=== PATIENT | female | born 2000 | race Caucasian/White ===

== ENCOUNTER 2021-03-14 19:12 | Inpatient (IN) | payer MEDICAID ==
--- NOTE | 2021-03-14 21:28 | PCM.LDHP ---
L&D History of Present Illness - General Date of Service: 03/14/21 Admit Problem/Dx: Patient Status Order with Admit Dx/Problem 03/14/21 19:20 Patient Status [ADT] Routine Admission Diagnosis/Problem Admission Diagnosis/Problem 39 weeks gestation of Source of Information: Patient History Limitations: Reports: No Limitations - History of Present Illness Introduction:: Mitzy Hernandez is a 20-year-old at 39 weeks 6 days (STEFANIE 03/15/2021) by an early ultrasound who presents with active contractions. She reports that she first started having contractions and pain at around 2:30 AM. This lasted for several hours where it was a constant pain and did not seem to let up from this pain. At around 11:30 AM she started to have regular contractions every 2 to 3 minutes and this lasted for several hours. The contractions started to get stronger and more painful. She reports that she has been having mucus vaginal discharge mixed with vaginal blood. Denies active bleeding but has been having consistent blood mixed with the mucus. Denies any leaking of any watery discharge. Reports good movement. Timing/Duration: Reports: constant/continuous (contractions every 2-3 minutes for the last 10 hours or so) Location, : Reports: Lower back, Pelvic, Vagina Quality: Reports: Pressure, Sharp, Throbbing Severity: Severe Improves with: Reports: None Worsens with: Reports: None Associated Symptoms: Reports: vaginal bleeding (minimal amount with mucus discharge), vaginal discharge (small amount of vaginal mucus discharge). Denies: vaginal clots, vaginal fluid Present Illness Comments:: Mitzy Hernandez is a 20-year-old at 39 weeks 6 days (STEFANIE 03/15/2021) by a 12- week ultrasound who presents with active contractions. She has had intermittent care with a provider in [place], [place]. Patient initially seen at around 12 weeks gestational age. Patient not seen since 30 weeks gestational age. She recently moved to [place] and was planning to establish care with a provider at [facility] on 03/18/2021. She states that she has had routine care and has not had any complications. She reports that she is GBS negative. Her care is complicated by: * Social history concerns with statement at appointment on 32 weeks that couples stated they have a backup plan that if they cannot handle the baby they will give it to a friend. * History of depression and is not on any medication at this time * History of bipolar disorder * History of hypertension and has not taken any medication for high blood pressure in approximately 2 years. She does not remember what medication she was on. CHECKOUT OPERATOR history G1: Current labs Blood type: O+ Antibody screen: Negative Urine culture: Mixed lisandra suggestive of contamination Rubella status: Immune Hepatitis B surface antigen: Negative RPR: Negative Hepatitis C: Negative HIV: Negative Pap smear: NILM on 12/16/2020 Gonorrhea: Negative Chlamydia: Negative Genetic testing: Quad screen showed increased risk for Down syndrome with 1 in 17 risk for Down syndrome Cell free DNA genetic screening: Negative for trisomy 13, 18 and 21, normal sex chromosomes, male on testing Anatomy ultrasound: Normal anatomy, right lateral placenta without placenta previa, 46 percentile on 10/28/2020 One hour glucose tolerance test: 138 Second trimester hematocrit/hemoglobin: 31.9%/11.2 on 12/16/2020 Platelets: 194 on 12/16/2020 GBS status: Unknown with no record of GBS collected in this on outside records - Related Data Allergies/Adverse Reactions: Allergies Allergy/AdvReac Type Severity Reaction Status Date / Time No Known Allergies Allergy Verified 03/14/21 20:17 Home Medications: Home Meds Famotidine 1 tab PO DAILY 03/14/21 [History] Pnv No.95/Ferrous Fum/Folic AC [ Vitamin Tablet] 1 tab PO DAILY 03/14/21 [History] Past Medical History Cardiovascular History: Reports: Hypertension (History of, has not taken medications since 2019) Psychiatric History: Reports: Depression - Past Surgical History HEENT Surgical History: Reports: None GI Surgical History: Reports: Hernia Repair/Other (Umbilical hernia with mesh repair at 1 years old) Female Surgical History: Reports: None Social & Family History - Tobacco Use Tobacco Use Status *Q: Never Tobacco User Tobacco Use Within Last Twelve Months: No - Tobacco Core Measures Tobacco Use/Smoking Within Last 30 Days: No Smokeless Tobacco Use in Last 30 Days: No - Alcohol Use Alcohol Use History: No - Recreational Drug Use Recreational Drug Use: No Drug Use in Last 12 Months: No - Living Situation & Occupation Living situation: Reports: Single, with Significant Other H&P Review of Systems - Review of Systems: Review Of Systems: See Below General: Denies: Fever, Chills, Malaise, Weakness, Fatigue HEENT: Reports: Glasses, Headaches (Irregular occasional headaches). Denies: Rh initis, Post Nasal Drip, Sinus Congestion, Sore Throat, Visual Changes Pulmonary: Denies: Shortness of Breath, Wheezing, Pleuritic Chest Pain, Cough Cardiovascular: Denies: Chest Pain, Palpitations, Dyspnea on Exertion, Orthopnea Gastrointestinal: Reports: Constipation. Denies: Abdominal Pain, Diarrhea, Nausea, Vomiting Genitourinary: Denies: Dysuria, Frequency, Burning, Pain, Urgency Musculoskeletal: Reports: Back Pain (And hip pain of ) Skin: Denies: Rash, Lesions Psychiatric: Denies: Depression, Anxiety Neurological: Denies: Headache L&D Exam - Exam Exam: See Below - Vital Signs Weight: 73.936 kg - OB Specific Contraction Duration (sec): 45-60 Contraction Frequency (min): 2-4 Contraction Intensity: Strong Movement: Active Heart Tones: Present Heart Tones per Min: 130 (+15 x 15 accelerations, no decelerations) Heart Rate (FHR) Variability: Moderate (6-25 bmp) Presentation: Vertex Estimated Weight: 7-7.5 pounds by Devante - Wild Score Wild Score Cervix Position: Anterior Wild Score Consistency: Soft Wild Score Effacement: >80% (80%) Wild Score Dilation: 3-4 cm (4 cm) Wild Score 's Station: -2 Wild Score Total: 10 - Exam General: Alert, Oriented HEENT: Conjunctiva Clear, EOMI, Glasses Neck: Supple, Trachea Midline Lungs: Clear to Auscultation, Normal Respiratory Effort Cardiovascular: Regular Rate, Regular Rhythm GI/Abdominal Exam: Soft, Non-Tender, No Distention, Other (Gravid). No: Guarding, Rigid, Rebound Genitourinary: Normal external exam, Vaginal discharge (Mixed with dark red blood) Extremities: Normal Inspection, Non-Tender, No Pedal Edema Skin: Warm, Dry, Intact Psychiatric: Alert, Normal Affect, Normal Mood - Problem List (1) 39 weeks gestation of SNOMED Code(s): 43406994 ICD Code: Z3A.39 - 39 WEEKS GESTATION OF Status: Acute Current Visit: Yes (2) History of depression SNOMED Code(s): 041071891 ICD Code: Z86.59 - PERSONAL HISTORY OF OTHER MENTAL AND BEHAVIORAL DISORDERS Status: Acute Current Visit: Yes (3) History of chronic hypertension SNOMED Code(s): 344813280 ICD Code: Z86.79 - PERSONAL HISTORY OF OTHER DISEASES OF THE CIRCULATORY SYSTEM Status: Acute Current Visit: Yes Problem List Initiated/Reviewed/Updated: Yes Orders Last 24hrs: Active Orders 24 hr Category Date Time Status Patient Status Manage Transfer [TRANSFER] Routine ADT 03/14/21 21:13 Ordered Patient Status [ADT] Routine ADT 03/14/21 19:20 Active Non Stress Test [RC] PER UNIT ROUTINE Care 03/14/21 19:20 Active Vital Signs [RC] PER UNIT ROUTINE Care 03/14/21 19:45 Active Resuscitation Status Routine Resus Stat 03/14/21 19:45 Ordered Assessment/Plan Comment:: Prince Frorester is a 20-year-old G1, P0 at 39 weeks 6 days (STEFANIE 03/15/2021) and active labor complicated by history of depression and history of chronic hypertension * Refer to observation for spontaneous labor with cervical change * Records reviewed from outside facility and overall normal. Patient has not been seen since 32 weeks gestational age. * Continuous monitoring * Place IV and have Lactated Ringer's at 125 ml/hr * May have small amounts of regular diet * Activity as tolerated * May have epidural as desired * Plans to bottlefeed after delivery * Plan for artificial rupture of membranes after patient has had epidural and with additional cervical change * Patient with mild range blood pressure on initial evaluation with a value of 141/94. No symptoms of severe features of preeclampsia. We will obtain labs including CBC, CMP, LDH and urine protein/creatinine ratio to evaluate for possible preeclampsia. * GBS status unknown and has not been seen since 32 weeks gestational age. Will collect a GBS swab at this time. Due to intermittent care we will start her on ampicillin 2 g IV then ampicillin 1 g IV every 4 hours for GBS prophylaxis unless results show no evidence of group B strep bacterial infection. * Patient with some social history concerns and would recommend for social service agency director consult given history of bipolar depression and statement at a visit of concerns about not being able to care for the infant with planning to give the infant to a friend if they are unable to care for the infant. * Anticipate vaginal delivery unless otherwise indicated Guillermo Mathis MD 9:53 PM 03/14/2021
[2021-03-14] MEDS ORDERED: Nalbuphine 10 MG/1 ML Vial IVPUSH PRN (22:12)
[2021-03-14] MEDS ORDERED: Acetaminophen 325 MG Tab PO PRN (22:12)
[2021-03-14] MEDS ORDERED: Oxytocin/Lactated Ringers 10 UNIT/1,000 ML BAG IV SCH (22:12)
[2021-03-14] MEDS ORDERED: Ampicillin 2 GM in Sodium Chloride 0.9% 100 ML IV ONE (22:12)
[2021-03-14] MEDS ORDERED: Sodium Chloride 0.9% 10 ML Syringe FLUSH PRN (22:12)
[2021-03-14] MEDS: Lactated Ringers 1,000 ML ONE (22:32)
[2021-03-14] MEDS ORDERED: diphenhydrAMINE 50 MG/ML SDV IVPUSH PRN (23:15)
[2021-03-14] MEDS ORDERED: fentaNYL 100 MCG/2 ML SDV EPIDUR PRN (23:15)
[2021-03-14] MEDS ORDERED: ePHEDrine 50 MG/ML SDV IVPUSH PRN (23:15)
[2021-03-14] MEDS: Bupivacaine/fentaNYL/NS 100 ML Bag EPIDUR PRN (23:31)
--- NOTE | 2021-03-14 23:45 | PCM.PREANE ---
Preanesthetic Assessment - Procedure Proposed Procedure: juliana - Anesthesia/Transfusion/Family Hx Anesthesia History: Prior Anesthesia Without Reaction Family History of Anesthesia Reaction: No Transfusion History: No Prior Transfusion(s) - Review of Systems General: No Symptoms Pulmonary: No Symptoms Cardiovascular: No Symptoms Gastrointestinal: Abdominal Pain (contractions) Neurological: Seizure (age 8 - no meds) Other: Reports: Depression, Anxiety (history) - Physical Assessment Vital Signs: Last Vital Signs Temp 98.4 F 03/14/21 22:12 Pulse 83 03/14/21 22:12 Resp 18 03/14/21 22:12 BP 141/94 H 03/14/21 22:12 Pulse Ox 100 03/14/21 22:12 Height: 5 ft 4 in Weight: 73.936 kg ASA Class: 2 Mental Status: Alert & Oriented x3 Airway Class: Mallampati = 1 Dentition: Reports: Normal Dentition Thyro-Mental Finger Breadths: 3 Mouth Opening Finger Breadths: 3 ROM/Head Extension: Full Lungs: Clear to Auscultation, Normal Respiratory Effort Cardiovascular: Regular Rate, Regular Rhythm - Lab Values: Laboratory Last Values WBC 13.31 K/mm3 (3.98-10.04) H 03/14/21 22:00 RBC 4.45 M/mm3 (3.98-5.22) 03/14/21 22:00 Hgb 13.3 gm/dl (11.2-15.7) 03/14/21 22:00 Hct 38.1 % (34.1-44.9) 03/14/21 22:00 MCV 85.6 fl (79.4-94.8) 03/14/21 22:00 MCH 29.9 pg (25.6-32.2) 03/14/21 22:00 MCHC 34.9 g/dl (32.2-35.5) 03/14/21 22:00 RDW Std Deviation 42.9 fL (36.4-46.3) 03/14/21 22:00 Plt Count 158 K/mm3 (182-369) L 03/14/21 22:00 MPV 11.5 fl (9.4-12.3) 03/14/21 22:00 Neut % (Auto) 77.3 % (34.0-71.1) H 03/14/21 22:00 Lymph % (Auto) 14.2 % (19.3-51.7) L 03/14/21 22:00 Boundary % (Auto) 7.1 % (4.7-12.5) 03/14/21 22:00 Eos % (Auto) 0.4 (0.7-5.8) L 03/14/21 22:00 Baso % (Auto) 0.2 % (0.1-1.2) 03/14/21 22:00 Neut # (Auto) 10.29 K/mm3 (1.56-6.13) H 03/14/21 22:00 Lymph # (Auto) 1.89 K/mm3 (1.18-3.74) 03/14/21 22:00 Boundary # (Auto) 0.94 K/mm3 (0.24-0.36) H 03/14/21 22:00 Eos # (Auto) 0.05 K/mm3 (0.04-0.36) 03/14/21 22:00 Baso # (Auto) 0.03 K/mm3 (0.01-0.08) 03/14/21 22:00 Manual Slide Review Abnormal smear 03/14/21 22:00 Sodium 136 mEq/L (136-145) 03/14/21 22:00 Potassium 3.4 mEq/L (3.5-5.1) L 03/14/21 22:00 Chloride 101 mEq/L (98-107) 03/14/21 22:00 Carbon Dioxide 22 mEq/L (21-32) 03/14/21 22:00 Anion Gap 16.4 (5-15) H 03/14/21 22:00 BUN 9 mg/dL (7-18) 03/14/21 22:00 Creatinine 0.9 mg/dL (0.55-1.02) 03/14/21 22:00 Est Cr Clr Drug Dosing 84.67 mL/min 03/14/21 22:00 Estimated GFR (MDRD) > 60 mL/min (>60) 03/14/21 22:00 BUN/Creatinine Ratio 10.0 (14-18) L 03/14/21 22:00 Glucose 94 mg/dL (70-99) 03/14/21 22:00 Calcium 8.9 mg/dL (8.5-10.1) 03/14/21 22:00 Total Bilirubin 0.3 mg/dL (0.2-1.0) 03/14/21 22:00 AST 21 U/L (15-37) 03/14/21 22:00 ALT 19 U/L (14-59) 03/14/21 22:00 Alkaline Phosphatase 221 U/L (46-116) H 03/14/21 22:00 Lactate Dehydrogenase 181 U/L (81-234) 03/14/21 22:00 Total Protein 6.1 g/dl (6.4-8.2) L 03/14/21 22:00 Albumin 2.5 g/dl (3.4-5.0) L 03/14/21 22:00 Globulin 3.6 gm/dL 03/14/21 22:00 Albumin/Globulin Ratio 0.7 (1-2) L 03/14/21 22:00 Ur Random Creatinine 40.4 mg/dL (30.0-125.0) 03/14/21 22:00 U Random Total Protein 12.7 mg/dL (0.0-11.8) H 03/14/21 22:00 Protein/Creatinin Ratio 314.4 mg/g (0-149) H 03/14/21 22:00 SARS-CoV-2 RNA (REMY) Negative (NEGATIVE) 03/14/21 21:20 - Allergies Allergies/Adverse Reactions: Allergies Allergy/AdvReac Type Severity Reaction Status Date / Time No Known Allergies Allergy Verified 03/14/21 20:17 - Blood Blood Available: No - Acknowledgements Anesthesia Type Planned: Epidural Pt an Appropriate Candidate for the Planned Anesthesia: Yes Alternatives and Risks of Anesthesia Discussed w Pt/Guardian: Yes Pt/Guardian Understands and Agrees with Anesthesia Plan: Yes PreAnesthesia Questionnaire Cardiovascular History: Reports: Hypertension (History of, has not taken medic ations since 2019) Respiratory History: Reports: None Gastrointestinal History: Reports: GERD Psychiatric History: Reports: Depression - Past Surgical History HEENT Surgical History: Reports: None GI Surgical History: Reports: Hernia Repair/Other (Umbilical hernia with mesh repair at 1 years old) Female Surgical History: Reports: None - SUBSTANCE USE Tobacco Use Status *Q: Never Tobacco User Tobacco Use Within Last Twelve Months: No Second Hand Smoke Exposure: No Days Per Week of Alcohol Use: 0 Recreational Drug Use History: No - HOME MEDS Home Medications: Home Meds Famotidine 1 tab PO DAILY 03/14/21 [History] Pnv No.95/Ferrous Fum/Folic AC [ Vitamin Tablet] 1 tab PO DAILY 03/14/21 [History] - CURRENT (IN HOUSE) MEDS Current Meds: Current Medications Acetaminophen (Acetaminophen 325 Mg Tab) 650 mg PO Q6H PRN PRN Reason: Pain (Mild 1-3) and fever Diphenhydramine HCl (Diphenhydramine 50 Mg/Ml Sdv) 25 mg IVPUSH Q6H PRN PRN Reason: pruritis Ephedrine Sulfate (Ephedrine 50 Mg/Ml Sdv) 5 mg IVPUSH ASDIRECTED PRN PRN Reason: Hypotension Fentanyl (Fentanyl 100 Mcg/2 Ml Sdv) 100 mcg EPIDUR Q3H PRN PRN Reason: Pain Last Admin: 03/14/21 23:29 Dose: 100 mcg Documented by: Fentanyl/Bupivacaine HCl (Bupivacaine/Fentanyl/Ns 100 Ml Bag) 100 ml EPIDUR ASDIRECTED PRN PRN Reason: Pain Last Admin: 03/14/21 23:31 Dose: 100 ml Documented by: Lactated Ringer's (Ringers, Lactated) 1,000 mls @ 100 mls/hr IV ASDIRECTED MALINDA Oxytocin/Lactated Ringer's (Pitocin In Lr 10 Units/1,000 Ml) 10 unit in 1,000 mls @ 100 mls/hr IV .CONTINUOUS MALINDA Ampicillin Sodium 1 gm/ Sodium (Chloride) 100 mls @ 200 mls/hr IV Q4H MALINDA Nalbuphine HCl (Nalbuphine 10 Mg/1 Ml Vial) 10 mg IVPUSH Q2H PRN PRN Reason: Pain Sodium Chloride (Sodium Chloride 0.9% 10 Ml Syringe) 10 ml FLUSH ASDIRECTED PRN PRN Reason: Keep Vein Open Discontinued Medications Ampicillin Sodium 2 gm/ Sodium (Chloride) 100 mls @ 200 mls/hr IV ONETIME ONE Stop: 03/14/21 22:41 Last Admin: 03/14/21 22:48 Dose: 200 mls/hr Documented by: Lactated Ringer's (Ringers, Lactated) Confirm Administered Dose 1,000 mls @ as directed .ROUTE .STK-MED ONE Stop: 03/14/21 22:26 Last Admin: 03/14/21 22:32 Dose: 100 mls/hr Documented by:
[2021-03-15] MEDS: Lactated Ringers 1,000 ML IV SCH ×3 (00:02→06:16)
[2021-03-15] MEDS: Lactated Ringers 1,000 ML ONE (00:11)
[2021-03-15] MEDS ORDERED: Ampicillin 1 GM in Sodium Chloride 0.9% 100 ML IV SCH (02:15)
[2021-03-15] MEDS: Ampicillin 1 GM in Sodium Chloride 0.9% 100 ML IV SCH ×3 (03:05→20:04)
[2021-03-15] MEDS ORDERED: Oxytocin/Lactated Ringers 10 UNIT/1,000 ML BAG IV SCH (05:15)
[2021-03-15] MEDS: Bupivacaine/fentaNYL/NS 100 ML Bag EPIDUR PRN (08:01)
--- NOTE | 2021-03-15 11:13 | PCM.SN.2 ---
- Free Text/Narrative Note: Delivery note: Stage I: Mitzy Hernandez is a 20-year-old G1 now para 1-0-0-1 who was at 39 weeks 6 days (STEFANIE 03/15/2021) upon admission on 03/14/2021. Dating was per an early ultrasound. She presented in active labor. She progressed steadily, membranes intact. Group B strep status was unknown so patient was treated with ampicillin per protocol. heart tones were reassuring. Contraction pattern was less than optimal so Pitocin augmentation was started. She had an epidural for labor analgesia with good results. She progressed to complete cervical dilation by approximately 0830 hrs. and began pushing. Over the course of the next 2 hours she brought the baby's head down well. Stage II: At 1036 hrs. on 03/15/2021 Mitzy delivered a viable, krishnan, male infant named Lukas Flynn. The baby weighed 3530 g (7 pounds 12.5 ounces), was 20.5 inches in length and had Apgars of 8 and 9. He delivered in a direct occiput anterior position. With gentle downward pressure of the anterior shoulder delivered and then the posterior shoulder delivered without problems. There was a loose nuchal cord x1 which was reduced over the baby's head without problems. The baby was placed on mom's abdomen, was dried with warm blanket and nose and mouth were bulb suction. The IV Pitocin per protocol solution of 10 units/L was increased to 500 cc/h rate to facilitate increase in uterine tone and decrease likelihood of bleeding. The patient had a second degree laceration which was repaired with 3-0 Monocryl suture in a routine fashion. The umbilical cord was allowed to pulsate x3 minutes and then was clamped x2 and cut by the baby's father. Cord blood was obtained. The cord had 3 vessels. Stage III: The placenta delivered at 1042 hrs. in a spontaneous Cortez fashion. The placenta appeared to be bilobed but with no evidence of vasa previa. Estimated blood loss was 150 cc. Patient plans to bottle-feed. Condition: Good.
[2021-03-15] MEDS ORDERED: Bupivacaine 0.25% 10 ML SDV ONE (12:00)
[2021-03-15] MEDS ORDERED: Benzocaine/Menthol 20%-0.5% Spray 56 GM Canister TOP PRN (12:31)
[2021-03-15] MEDS ORDERED: Acetaminophen 325 MG Tab PO PRN (12:31)
[2021-03-15] MEDS: Ibuprofen 600 MG Tab PO PRN ×3 (13:01→23:07)
[2021-03-15] MEDS: Witch Hazel Medicated Pads 40/Jar TOP PRN (13:01)
[2021-03-16] MEDS: Ibuprofen 600 MG Tab PO PRN ×3 (03:58→23:44)
--- NOTE | 2021-03-16 08:01 | PCM.SN.2 ---
- Free Text/Narrative Note: Post Progress Note PPD #1 Subjective: Doing well overall. Ambulating without difficulty. Lochia minimal. Voiding without difficulty. Tolerating regular diet without nausea or vomiting. Pain controlled with oral medications. Bottlefeeding with minimal difficulty. Denies any breast milk production at this time. Denies any headaches, vision changes or epigastric pain. Objective: Vitals: Vital Signs - 24 hr 03/15/21 03/15/21 03/16/21 14:57 20:09 04:02 Temperature 36.7 C 36.6 C 36.5 C Pulse, 80 76 72 Peripheral Respiratory 14 16 14 Rate Blood Pressure 137/80 135/93 H 138/97 H O2 Sat by Pulse 99 99 98 Oximetry 03/16/21 04:04 Temperature Pulse, Peripheral Respiratory Rate Blood Pressure 111/87 O2 Sat by Pulse Oximetry Physical Exam General: Alert and oriented, no acute distress Lungs: Clear to auscultation bilaterally Heart: Regular rate and rhythm Abdomen: Soft, minimal appropriate tenderness, non-distended, fundus midline, nontender, and at the umbilicus Extremities: No edema in bilateral lower extremities, no calf tenderness bilaterally Laboratory Tests 03/14/21 03/14/21 03/14/21 Range/Units 21:20 21:20 22:00 WBC 13.31 H (3.98-10.04) K/mm3 RBC 4.45 (3.98-5.22) M/mm3 Hgb 13.3 (11.2-15.7) gm/dl Hct 38.1 (34.1-44.9) % MCV 85.6 (79.4-94.8) fl MCH 29.9 (25.6-32.2) pg MCHC 34.9 (32.2-35.5) g/dl RDW Std Deviation 42.9 (36.4-46.3) fL Plt Count 158 L (182-369) K/mm3 MPV 11.5 (9.4-12.3) fl Neut % (Auto) 77.3 H (34.0-71.1) % Lymph % (Auto) 14.2 L (19.3-51.7) % Vance % (Auto) 7.1 (4.7-12.5) % Eos % (Auto) 0.4 L (0.7-5.8) Baso % (Auto) 0.2 (0.1-1.2) % Neut # (Auto) 10.29 H (1.56-6.13) K/mm3 Lymph # (Auto) 1.89 (1.18-3.74) K/mm3 Vance # (Auto) 0.94 H (0.24-0.36) K/mm3 Eos # (Auto) 0.05 (0.04-0.36) K/mm3 Baso # (Auto) 0.03 (0.01-0.08) K/mm3 Manual Slide Review Abnormal smear Sodium (136-145) mEq/L Potassium (3.5-5.1) mEq/L Chloride (98-107) mEq/L Carbon Dioxide (21-32) mEq/L Anion Gap (5-15) BUN (7-18) mg/dL Creatinine (0.55-1.02) mg/dL Est Cr Clr Drug Dosing mL/min Estimated GFR (MDRD) (>60) mL/min BUN/Creatinine Ratio (14-18) Glucose (70-99) mg/dL Calcium (8.5-10.1) mg/dL Total Bilirubin (0.2-1.0) mg/dL AST (15-37) U/L ALT (14-59) U/L Alkaline Phosphatase (46-116) U/L Lactate Dehydrogenase (81-234) U/L Total Protein (6.4-8.2) g/dl Albumin (3.4-5.0) g/dl Globulin gm/dL Albumin/Globulin Ratio (1-2) Ur Random Creatinine (30.0-125.0) mg/dL U Random Total Protein (0.0-11.8) mg/dL Protein/Creatinin Ratio (0-149) mg/g SARS-CoV-2 RNA (REMY) Negative (NEGATIVE) Group B Strep (PCR) Negative (NEGATIVE) Blood Type Gel Antibody Screen 03/14/21 03/14/21 03/14/21 Range/Units 22:00 22:00 22:00 WBC (3.98-10.04) K/mm3 RBC (3.98-5.22) M/mm3 Hgb (11.2-15.7) gm/dl Hct (34.1-44.9) % MCV (79.4-94.8) fl MCH (25.6-32.2) pg MCHC (32.2-35.5) g/dl RDW Std Deviation (36.4-46.3) fL Plt Count (182-369) K/mm3 MPV (9.4-12.3) fl Neut % (Auto) (34.0-71.1) % Lymph % (Auto) (19.3-51.7) % Vance % (Auto) (4.7-12.5) % Eos % (Auto) (0.7-5.8) Baso % (Auto) (0.1-1.2) % Neut # (Auto) (1.56-6.13) K/mm3 Lymph # (Auto) (1.18-3.74) K/mm3 Vance # (Auto) (0.24-0.36) K/mm3 Eos # (Auto) (0.04-0.36) K/mm3 Baso # (Auto) (0.01-0.08) K/mm3 Manual Slide Review Sodium 136 (136-145) mEq/L Potassium 3.4 L (3.5-5.1) mEq/L Chloride 101 (98-107) mEq/L Carbon Dioxide 22 (21-32) mEq/L Anion Gap 16.4 H (5-15) BUN 9 (7-18) mg/dL Creatinine 0.9 (0.55-1.02) mg/dL Est Cr Clr Drug Dosing 84.67 mL/min Estimated GFR (MDRD) > 60 (>60) mL/min BUN/Creatinine Ratio 10.0 L (14-18) Glucose 94 (70-99) mg/dL Calcium 8.9 (8.5-10.1) mg/dL Total Bilirubin 0.3 (0.2-1.0) mg/dL AST 21 (15-37) U/L ALT 19 (14-59) U/L Alkaline Phosphatase 221 H (46-116) U/L Lactate Dehydrogenase 181 (81-234) U/L Total Protein 6.1 L (6.4-8.2) g/dl Albumin 2.5 L (3.4-5.0) g/dl Globulin 3.6 gm/dL Albumin/Globulin Ratio 0.7 L (1-2) Ur Random Creatinine 40.4 (30.0-125.0) mg/dL U Random Total Protein 12.7 H (0.0-11.8) mg/dL Protein/Creatinin Ratio 314.4 H (0-149) mg/g SARS-CoV-2 RNA (REMY) (NEGATIVE) Group B Strep (PCR) (NEGATIVE) Blood Type O POSITIVE Gel Antibody Screen Negative ASSESSMENT: 20-year-old female -0-0-1 s/p normal vaginal delivery PPD #1, complicated by gestational hypertension, social history concerns, history of depression, history of bipolar disorder and history of chronic hypertension PLAN: Doing well Bottlefeeding with minimal difficulty. Assist as needed Lochia minimal. Continue to monitor for appropriate lochia. Continue routine care director client services consult today to evaluate for any possible needs in the state Patient with ongoing mild range blood pressures after delivery. No significant or severe features of preeclampsia. Suspect gestational hypertension. No treatment needed at this time. Continue to monitor blood pressures and for other signs or symptoms of preeclampsia. Anticipate discharge home tomorrow Guillermo Mathis MD 8:01 AM 03/16/2021
--- NOTE | 2021-03-16 08:11 | PCM48HPAN ---
Post Anesthesia Note - EVALUATION WITHIN 48HRS OF ANESTHETIC Vital Signs in Normal Range: Yes Patient Participated in Evaluation: Yes Respiratory Function Stable: Yes Airway Patent: Yes Cardiovascular Function Stable: Yes Hydration Status Stable: Yes Pain Control Satisfactory: Yes Nausea and Vomiting Control Satisfactory: Yes Mental Status Recovered: Yes Vital Signs: Last Vital Signs Temp 36.5 C 03/16/21 04:02 Pulse 72 03/16/21 04:02 Resp 14 03/16/21 04:02 BP 111/87 03/16/21 04:04 Pulse Ox 98 03/16/21 04:02
[2021-03-16] MEDS: Witch Hazel Medicated Pads 40/Jar TOP PRN (13:23)
[2021-03-16] MEDS: Prenatal Multivitamin with Calcium/Folic Acid/Iron Tab PO SCH (14:41)
[2021-03-16] MEDS: Docusate Sodium 100 MG Cap PO PRN (14:50)
[2021-03-17] MEDS: Docusate Sodium 100 MG Cap PO PRN (01:20)
--- NOTE | 2021-03-17 06:16 | PCM.DCSUM1 ---
Discharge Summary - Hospital Course Free Text/Narrative:: Stage I: Mitzy Hernandez is a 20-year-old G1 now para 1-0-0-1 who was at 39 weeks 6 days (STEFANIE 03/15/2021) upon admission on 03/14/2021. Dating was per an early ultrasound. She presented in active labor. She progressed steadily, membranes intact. Group B strep status was unknown so patient was treated with ampicillin per protocol. heart tones were reassuring. Contraction pattern was less than optimal so Pitocin augmentation was started. She had an epidural for labor analgesia with good results. She progressed to complete cervical dilation by approximately 0830 hrs. and began pushing. Over the course of the next 2 hours she brought the baby's head down well. Stage II: At 1036 hrs. on 03/15/2021 Mitzy delivered a viable, krishnan, male infant named Lukas Flynn. The baby weighed 3530 g (7 pounds 12.5 ounces), was 20.5 inches in length and had Apgars of 8 and 9. He delivered in a direct occiput anterior position. With gentle downward pressure of the anterior shoulder delivered and then the posterior shoulder delivered without problems. There was a loose nuchal cord x1 which was reduced over the baby's head without problems. The baby was placed on mom's abdomen, was dried with warm blanket and nose and mouth were bulb suction. The IV Pitocin per protocol solution of 10 units/L was increased to 500 cc/h rate to facilitate increase in uterine tone and decrease likelihood of bleeding. The patient had a second degree laceration which was repaired with 3-0 Monocryl suture in a routine fashion. The umbilical cord was allowed to pulsate x3 minutes and then was clamped x2 and cut by the baby's father. Cord blood was obtained. The cord had 3 vessels. Stage III: The placenta delivered at 1042 hrs. in a spontaneous Cortez fashion. The placenta appeared to be bilobed but with no evidence of vasa previa. Estimated blood loss was 150 cc. Patient plans to bottle-feed. Mitzy has done well . She is bottle feeding. She has minimal lochia, is voiding well, has had normal VS and is ambulating without concern. She is desiring discharge home today. Condition: Good. - Discharge Data Discharge Date: 03/17/21 Discharge Disposition: Home, Self-Care 01 Condition: Good - Referral to Home Health Primary Care Physician: PCP Not In Area - Patient Summary/Data Consults: Consultations 03/15/21 14:35 Consult to Case Management/Material Handler [CONS] Routine - Patient Instructions Diet: Regular Diet as Tolerated Activity: As Tolerated Driving: May Drive Today Showering/Bathing: May Shower Showering/Bathing, Other: May take a bath Notify Provider of: Fever, Increased Pain, Swelling and Redness, Nausea and/or Vomiting - Discharge Plan Home Medications: Home Meds Famotidine 1 tab PO DAILY 03/14/21 [History] Pnv No.95/Ferrous Fum/Folic AC [ Vitamin Tablet] 1 tab PO DAILY 03/14/21 [History] Acetaminophen [Tylenol] 650 mg PO Q4H PRN tablet 03/17/21 [Rx] Ibuprofen [Motrin] 600 mg PO Q4H PRN tablet 03/17/21 [Rx] - Discharge Summary/Plan Comment DC Time >30 min.: No Discharge Summary/Plan Comment: Discharge instructions: 1. Discharge home 2. Diet, activity and follow-up discussed with patient. Recommend nursing diet with increased calories and calcium. 3. Precautions given concern increased pain, bleeding, temperature, signs/symptoms of DVT/PE. 4. Medications per home medication was printed, discussed with and given to the patient. 5. Return to clinic[facility] in 2 weeks. Diagnosis: Term -delivered Condition: Good - Patient Data Vitals - Most Recent: Last Vital Signs Temp 36.4 C 03/17/21 02:59 Pulse 73 03/17/21 02:59 Resp 16 03/17/21 02:59 BP 114/85 03/17/21 02:59 Pulse Ox 100 03/17/21 02:59 Weight - Most Recent: 73.936 kg I&O - Last 24 hours: Intake & Output 03/16/21 03/16/21 03/17/21 14:59 22:59 06:59 Intake Total 300 Balance 300 Lab Results - Last 24 hrs: Laboratory Results - last 24 hr 03/14/21 Range/Units 22:00 RPR Non-reactive (NONREACTIVE) Med Orders - Current: Current Medications Acetaminophen (Acetaminophen 325 Mg Tab) 650 mg PO Q4H PRN PRN Reason: mild pain or fever Benzocaine/Menthol (Benzocaine/Menthol 20%-0.5% [place] 56 Gm Canister) 0 gm TOP ASDIRECTED PRN PRN Reason: Perineal Comfort Measure Last Admin: 03/15/21 13:01 Dose: 1 applic Documented by: Docusate Sodium (Docusate Sodium 100 Mg Cap) 100 mg PO BID PRN PRN Reason: Constipation Last Admin: 03/17/21 01:20 Dose: 100 mg Documented by: Ibuprofen (Ibuprofen 600 Mg Tab) 600 mg PO Q4H PRN PRN Reason: Mild pain or fever Last Admin: 03/16/21 23:44 Dose: 600 mg Documented by: Prenat Multivit/Pleasants/Iron/Folic Ac ( Multivitamin With Calcium/Folic Acid/Iron Tab) 1 each PO DAILY [facility] Last Admin: 03/16/21 14:41 Dose: 1 each Documented by: Jose Maria Jefferson (Jose Maria Jefferson Medicated Pads 40/Jar) 1 pad TOP ASDIRECTED PRN PRN Reason: Perineal Comfort Measure Last Admin: 03/16/21 13:23 Dose: 1 tub Documented by: Discontinued Medications Acetaminophen (Acetaminophen 325 Mg Tab) 650 mg PO Q6H PRN PRN Reason: Pain (Mild 1-3) and fever Bupivacaine HCl (Bupivacaine 0.25% 10 Ml Sdv) 10 ml .ROUTE .RUST-MED ONE Stop: 03/15/21 12:01 Diphenhydramine HCl (Diphenhydramine 50 Mg/Ml Sdv) 25 mg IVPUSH Q6H PRN PRN Reason: pruritis Ephedrine Sulfate (Ephedrine 50 Mg/Ml Sdv) 5 mg IVPUSH ASDIRECTED PRN PRN Reason: Hypotension Fentanyl (Fentanyl 100 Mcg/2 Ml Sdv) 100 mcg EPIDUR Q3H PRN PRN Reason: Pain Last Admin: 03/14/21 23:29 Dose: 100 mcg Documented by: Fentanyl/Bupivacaine HCl (Bupivacaine/Fentanyl/Ns 100 Ml Bag) 100 ml EPIDUR ASDIRECTED PRN PRN Reason: Pain Last Admin: 03/15/21 08:01 Dose: 100 ml Documented by: Lactated Ringer's (Ringers, Lactated) 1,000 mls @ 100 mls/hr IV ASDIRECTED MALINDA Last Admin: 03/15/21 06:16 Dose: 100 mls/hr Documented by: Oxytocin/Lactated Ringer's (Pitocin In Lr 10 Units/1,000 Ml) 10 unit in 1,000 mls @ 100 mls/hr IV .CONTINUOUS MALINDA Ampicillin Sodium 2 gm/ Sodium (Chloride) 100 mls @ 200 mls/hr IV ONETIME ONE Stop: 03/14/21 22:41 Last Admin: 03/14/21 22:48 Dose: 200 mls/hr Documented by: Ampicillin Sodium 1 gm/ Sodium (Chloride) 100 mls @ 200 mls/hr IV Q4H MALINDA Lactated Ringer's (Ringers, Lactated) Confirm Administered Dose 1,000 mls @ as directed .ROUTE .STK-MED ONE Stop: 03/14/21 22:26 Last Admin: 03/15/21 00:11 Dose: Not Given Documented by: Ampicillin Sodium 1 gm/ Sodium (Chloride) 100 mls @ 200 mls/hr IV Q4H [facility] Last Admin: 03/15/21 20:04 Dose: Not Given Documented by: Oxytocin/Lactated Ringer's (Pitocin In Lr 10 Units/1,000 Ml) 10 unit in 1,000 mls @ 12 mls/hr IV TITRATE MALINDA; Protocol Last Titration: 03/15/21 08:03 Dose: 4 munits/min, 24 mls/hr Documented by: Nalbuphine HCl (Nalbuphine 10 Mg/1 Ml Vial) 10 mg IVPUSH Q2H PRN PRN Reason: Pain Sodium Chloride (Sodium Chloride 0.9% 10 Ml Syringe) 10 ml FLUSH ASDIRECTED PRN PRN Reason: Keep Vein Open
[2021-03-17] MEDS: Ibuprofen 600 MG Tab PO PRN (07:42)
[2021-03-17] MEDS: Prenatal Multivitamin with Calcium/Folic Acid/Iron Tab PO SCH ×2 (07:43→11:48)
== END 2021-03-17 11:30 | disposition home or self-care (01) | DRG 807 ==
LOC: JD.OBCHECK 19:12 → JD.OB 21:13 → OBSVTOIN 03-15 10:36 → JD.OB 03-15 10:37
PROVIDERS: ADMIT Obstetrics & Gynecology; ATTEND Obstetrics & Gynecology
PROC: 10E0XZZ Delivery of Products of Conception, External Approach (ICD-10-PCS; principal; 2021-03-15)
PROC: 0KQM0ZZ Repair Perineum Muscle, Open Approach (ICD-10-PCS; 2021-03-15)
PROC: 3E0R3BZ Introduction of Anesthetic Agent into Spinal Canal, Percutaneous Approach (ICD-10-PCS; 2021-03-15)
DX: O99.62 Diseases of the digestive system complicating childbirth (principal); Z37.0 Single live birth; K21.9 Gastro-esophageal reflux disease without esophagitis; Z20.822 Contact with and (suspected) exposure to COVID-19; O70.1 Second degree perineal laceration during delivery; O69.81X0 Labor and delivery complicated by cord around neck, without compression, not applicable or unspecified; Z3A.39 39 weeks gestation of pregnancy
CPT/HCPCS: 01967; 36415; 51702; 59025; 59409; 80053; 82570; 83615; 84156; 85025; 86592; 86850; 86900; 86901; 87653; A9270-GY; J0290; J2590; J3010; J3490; J7120; U0002